=== PATIENT | female | born 1955 | race Caucasian/White ===

== ENCOUNTER 2018-05-30 18:39 | Outpatient (REF) | payer MEDICAID, SELFPAY ==
--- NOTE | 2018-05-30 13:45 | PAPFT_PTH ---
PATIENT: Alysha Mandujano LOC: [facility] U#:[id number] AGE/SX: 62/F ROOM: RE05/30/[address]: Jose Garcia : 1955 BED: DIS: 05/30/2018 SPEC #: [id number] RECD: 05/31/18 12:55 STATUS: SONJA REQ #: [id number] CAMMIE: 05/30/18 13:[address]: Jose Garcia [facility]PT[facility] Cytology RECD BY: Yael Nair Tissues: 1 - CX/ENDOCX FOR PAP SMEARS Procedures: PAP THIN PREP/[facility] Screening HPV DNA PROBE Comments: [id number]
== END 2018-05-30 18:40 ==
LOC: NCHCN 18:39
PROVIDERS: PCP Internal Medicine; Visit Provider Internal Medicine
DX: Z12.4 Encounter for screening for malignant neoplasm of cervix (principal); Z11.51 Encounter for screening for human papillomavirus (HPV); Z00.00 Encounter for general adult medical examination without abnormal findings
CPT/HCPCS: 88142; 87624

== ENCOUNTER 2018-12-15 10:55 | Outpatient (REF) | payer MEDICAID, SELFPAY ==
[2018-12-15 21:59] LABS: Hemoglobin A1C 5.6 % (4.5-6.2)
[2018-12-15 22:02] LABS: HCT 48.2 % (36.0-46.0); HGB 15.3 g/dL (12.0-15.5); Mean Corp. HGB Concentration 31.7 g/dL (32.0-36.0); Mean Corpuscular Hemoglobin 28.5 pg (27.0-33.0); Mean Corpuscular Volume 89.9 fL (80-95); Mean Platelet Volume 11.5 fL (8.0-11.0); Platelet Count 168 x1000/uL (130-400); RBC 5.36 m/cumm (4.00-5.20); RBC Distribution Width 13.5 % (11.7-14.6); White Blood Cell Count 3.41 k/cumm (4.4-10.8)
[2018-12-15 22:38] LABS: Anion Gap 5.6 mmol/L (3-11); BUN 13 mg/dL (7-18); CO2 32.4 mmol/L (21.0-32.0); CREATININE 0.65 mg/dL (0.55-1.02); Calcium 9.5 mg/dL (8.5-10.1); Chloride 105 mmol/L (98-107); Glucose 81 mg/dL (70-100); Potassium 3.8 mmol/L (3.5-5.1); Sodium 143 mmol/L (136-145); Vitamin B12 544 pg/mL (193-986)
[2018-12-15 22:41] LABS: Folate > 20.0 ng/mL (8.6-20.0)
[2018-12-19 12:56] LABS: Albumin 62.4 % (55.8-66.1); Total Protein 7.1 g/dl (6.3-8.2)
== END 2018-12-15 11:15 ==
LOC: NCHCN 10:55
PROVIDERS: PCP Internal Medicine; Visit Provider Internal Medicine
DX: R20.8 Other disturbances of skin sensation (principal)
CPT/HCPCS: 80048; 85027; 82607; 82746; 83036; 84165; 84443

== ENCOUNTER 2019-06-02 11:20 | Outpatient (REF) | payer MEDICAID, SELFPAY | END 2019-06-02 11:40 | LOC: NCHCN 11:20 | PROVIDERS: PCP Internal Medicine; Visit Provider Family Medicine | DX: R30.0 Dysuria (principal) | CPT/HCPCS: 87086 ==

== ENCOUNTER 2019-07-24 11:36 | Outpatient (REF) | payer MEDICAID, SELFPAY ==
--- NOTE | 2019-07-25 11:25 | PAPFT_PTH ---
PATIENT: Alysha Mandujano LOC: [facility] U#:[id number] AGE/SX: 63/F ROOM: RE07/24/[address]: Carrol Cardenas : 1955 BED: DIS: 07/24/2019 SPEC #: [id number] RECD: 07/25/19 12:51 STATUS: SONJA REQ #: [id number] CAMMIE: 07/25/19 11:[address]: Carrol Cardenas DEPT: [facility] Cytology RECD BY: Yael Nair ENTERED: 07/25/19 12:51 SP TYPE: PAPFT OTHR DR: Jose Garcia Tissues: 1 - CX/ENDOCX FOR PAP SMEARS Procedures: PAP THIN PREP/[facility] Screening HPV DNA PROBE Comments: [id number]
== END 2019-07-24 11:56 ==
LOC: NCHCN 11:36
PROVIDERS: PCP Internal Medicine; Visit Provider Internal Medicine
DX: Z12.4 Encounter for screening for malignant neoplasm of cervix (principal); Z11.51 Encounter for screening for human papillomavirus (HPV); Z00.00 Encounter for general adult medical examination without abnormal findings
CPT/HCPCS: 88142; 87624

== ENCOUNTER 2020-06-11 14:45 | Outpatient (REF) | payer MEDICAID, SELFPAY ==
[2020-06-14 18:09] LABS: Patient Race White; SARS-CoV-2 RNA Undetected (Undetected); SARS-CoV-2 Specimen Source Nasopharynx
== END 2020-06-11 15:05 ==
LOC: NCHCN 14:45
PROVIDERS: PCP Internal Medicine; Visit Provider Internal Medicine
DX: R05 Cough (principal)
CPT/HCPCS: U0003

== ENCOUNTER 2020-08-12 20:55 | Outpatient (REF) | payer MEDICAID, SELFPAY ==
[2020-08-12 22:21] LABS: Anion Gap 6.7 mmol/L (3-11); BUN 11 mg/dL (7-18); CO2 29.3 mmol/L (21.0-32.0); CREATININE 0.69 mg/dL (0.55-1.02); Calcium 9.2 mg/dL (8.5-10.1); Calculated LDL 141 mg/dL (<100); Chloride 105 mmol/L (98-107); Cholesterol 240 mg/dL (<200); Glucose 95 mg/dL (74-106); HDL Cholesterol 78 mg/dL (40-60); Potassium 3.8 mmol/L (3.5-5.1); Sodium 141 mmol/L (136-145); Triglyceride 107 mg/dL (<150)
== END 2020-08-12 21:15 ==
LOC: NCHCN 20:55
PROVIDERS: PCP Internal Medicine; Visit Provider Internal Medicine
DX: R03.0 Elevated blood-pressure reading, without diagnosis of hypertension (principal); E78.5 Hyperlipidemia, unspecified
CPT/HCPCS: 80048; 80061

== ENCOUNTER 2021-07-17 16:44 | Outpatient (REF) | payer MEDICAID, SELFPAY ==
[2021-07-17 22:11] LABS: Abs Immature Grans 0.02 10^3/uL (0.0-0.06); Absolute Basophil Count 0.07 10^3/uL (0.0-0.2); Absolute Eosinophil Count 0.26 10^3/uL (0.0-0.7); Absolute Lymphocyte Count 1.49 10^3/uL (1.2-3.4); Absolute Monocyte Count 0.64 10^3/uL (0.1-0.8); Absolute Neutrophil Count 4.52 10^3/uL (1.2-6.7); Eosinophils % 3.7; HCT 41.6 % (36.0-46.0); Immature Grans % 0.3; Lymphocytes % 21.3; MCH 28.4 pg (27.0-33.0); MCHC 31.3 % (32.0-36.0); MPV 11.6 fL (8.0-11.0); Monocytes % 9.1; Neutrophils % 64.6; Nucleated RBC 0 %; Platelet Count 190 10^3/uL (130-400); RBC 4.57 10^6/uL (3.93-5.22); RDW 12.8 % (11.7-14.6); RDW-SD 42.2 fL
[2021-07-17 22:26] LABS: ALT 21 U/L (14-59); AST 19 U/L (15-37); Albumin 3.7 g/dL (3.4-5.0); Alkaline Phosphatase 80 U/L (46-116); Anion Gap 7.6 mmol/L (3-11); BUN 11 mg/dL (7-18); Bilirubin, Total 0.5 mg/dL (0.2-1.0); CO2 30.4 mmol/L (21.0-32.0); CREATININE 0.6 mg/dL (0.55-1.02); Calcium 9.1 mg/dL (8.5-10.1); Chloride 104 mmol/L (98-107); Glucose 95 mg/dL (74-106); Potassium 3.9 mmol/L (3.5-5.1); Sodium 142 mmol/L (136-145); Total Protein 6.9 g/dL (6.4-8.2)
[2021-07-18 10:36] LABS: C Diff PCR Positive (Negative)
[2021-07-19 11:42] LABS: COVID-19 RT-PCR UVMMC Result Negative (Negative)
[2021-07-22 14:15] LABS: Helicobacter pylori Ag, Feces Negative (Negative)
== END 2021-07-17 16:45 | disposition home or self-care (01) ==
LOC: NCHCN 16:44
PROVIDERS: PCP Internal Medicine; Visit Provider Nurse Practitioner Family
DX: R19.7 Diarrhea, unspecified (principal); Z20.822 Contact with and (suspected) exposure to COVID-19
CPT/HCPCS: 80053; 87338; 87493; U0003; 85025

== ENCOUNTER 2021-08-04 17:08 | Outpatient (REF) | payer MEDICAID, SELFPAY ==
[2021-08-04 22:55] LABS: C Diff PCR Positive (Negative)
== END 2021-08-04 17:09 | disposition home or self-care (01) ==
LOC: NCHCN 17:08
PROVIDERS: PCP Internal Medicine; Visit Provider Internal Medicine
DX: R19.7 Diarrhea, unspecified (principal)
CPT/HCPCS: 87493